=== PATIENT | female | born 1925 | race Hispanic/Latino ===

== ENCOUNTER 2017-01-18 13:06 | Outpatient (CLI) | payer MEDICARE ==
--- NOTE | 2017-01-18 14:25 | XRay Report ---
RIGHT SHOULDER: Routine views demonstrate normal bony and soft tissue structures with normal joint alignment of the shoulder. IMPRESSION: Normal study.
== END 2017-01-18 13:07 | disposition home or self-care (01) ==
LOC: SPVIMAG 13:06
PROVIDERS: ATTEND Internal Medicine Hematology & Oncology
DX: C91.10 Chronic lymphocytic leukemia of B-cell type not having achieved remission (principal)